=== PATIENT | male | born 1995 | race Native Hawaiian/Other Pacific Islander ===

== ENCOUNTER 2018-10-28 18:05 | Emergency (ER) | payer BC, OTHER ==
[~2018-10-28] VITALS: Ht 177.8 cm; Wt 81.6 kg
[2018-10-28] MEDS ORDERED: LACTATED RINGERS 1,000 ML IV ONE ×3 (18:14→20:14)
[2018-10-28 18:26] LABS: BASOPHILS % (AUTO) 0 % (0-10); EOSINOPHILS # (AUTO) 0.2 10^3/uL (0.0-0.3); EOSINOPHILS % (AUTO) 2 % (0-10); HEMATOCRIT 46 % (40-54); HEMOGLOBIN 15.9 G/DL (13.3-17.7); LYMPHOCYTES # (AUTO) 3.1 X 10^3 (1.0-4.0); LYMPHOCYTES % (AUTO) 27 % (12-44); MEAN CORPUSCULAR HEMOGLOBIN 31 PG (25-34); MEAN CORPUSCULAR HGB CONC 35 G/DL (32-36); MEAN CORPUSCULAR VOLUME 90 FL (80-99); MEAN PLATELET VOLUME 9.3 FL (7.4-10.4); MONOCYTES # (AUTO) 0.9 X 10^3 (0.0-1.0); MONOCYTES % (AUTO) 8 % (0-12); NEUTROPHILS % (AUTO) 63 % (42-75); PLATELET COUNT 281 10^3/uL (130-400); RED CELL DISTRIBUTION WIDTH 12.7 % (10.0-14.5); WHITE BLOOD COUNT 11.1 10^3/uL (4.3-11.0)
[2018-10-28 18:27] LABS: BILIRUBIN,URINE NEGATIVE (NEGATIVE); CLARITY,URINE SLIGHTLY CLOUDY; COLOR,URINE YELLOW; GLUCOSE, URINE (UA) NEGATIVE (NEGATIVE); KETONES,URINE 2+ (NEGATIVE); LEUKOCYTE ESTERASE ,URINE NEGATIVE (NEGATIVE); NITRITE,URINE NEGATIVE (NEGATIVE); PH,URINE 5 (5-9); PROTEIN,URINE 3+ (NEGATIVE); UROBILINOGEN,URINE NORMAL (NORMAL)
[2018-10-28 18:33] LABS: BACTERIA,URINE TRACE /HPF; RBC,URINE RARE /HPF; SQUAMOUS EPITHELIAL CELL,UR RARE /HPF
[2018-10-28 18:36] LABS: INR 1.1 (0.8-1.4); PROTHROMBIN TIME PATIENT 14.6 SEC (12.2-14.7)
[2018-10-28 18:37] LABS: AMPHETAMINE SCREEN, URINE NEGATIVE (NEGATIVE); BARBITURATE SCREEN URINE NEGATIVE (NEGATIVE); BENZODIAZEPINES SCREEN URINE NEGATIVE (NEGATIVE); CANNABINOID SCREEN, URINE NEGATIVE (NEGATIVE); COCAINE SCREEN URINE NEGATIVE (NEGATIVE); METHADONE STAT NEGATIVE (NEGATIVE); METHAMPHETAMINE SCREEN URINE S NEGATIVE (NEGATIVE); OPIATE SCREEN URINE NEGATIVE (NEGATIVE); OXYCODONE STAT NEGATIVE (NEGATIVE); PROPOXYPHENE STAT NEGATIVE (NEGATIVE); TRICYCLIC ANTIDEPRESSANTS SCRE NEGATIVE (NEGATIVE)
[2018-10-28 18:45] LABS: ACETAMINOPHEN < 10 UG/ML (10-30); ALANINE AMINOTRANSFERASE 67 U/L (0-55); ALBUMIN 5.3 GM/DL (3.2-4.5); ALKALINE PHOSPHATASE 94 U/L (40-136); BILIRUBIN,TOTAL 0.2 MG/DL (0.1-1.0); BUN/CREATININE RATIO 10; CALCIUM 10.5 MG/DL (8.5-10.1); CARBON DIOXIDE 13 MMOL/L (21-32); CHLORIDE 104 MMOL/L (98-107); CREATINE KINASE 1321 U/L (30-200); CREATININE SERUM 1.45 MG/DL (0.60-1.30); GFR ESTIMATED > 60; GLUCOSE 130 MG/DL (70-105); MAGNESIUM 2.6 MG/DL (1.8-2.4); POTASSIUM 3.2 MMOL/L (3.6-5.0); SODIUM 143 MMOL/L (135-145); TOTAL PROTEIN 8.3 GM/DL (6.4-8.2)
--- NOTE | 2018-10-28 18:50 | Diagnostic Imaging Report ---
INDICATION: Seizure. TECHNIQUE: Noncontrast brain CT is performed. FINDINGS: There were no extra-axial fluid collections. No intracranial hemorrhage. No intracranial mass or mass effect. No midline shift. The ventricles are normal in size and position. There were no focal parenchymal abnormalities in the brain. Calvarial windows were unremarkable. IMPRESSION: Negative noncontrast brain CT. Dictated by: Dictated on workstation # [id number]
[2018-10-28 19:04] LABS: CREATINE KINASE MB 3.7 NG/ML (<6.6); TSH (THYROID ANALYZER) 1.92 UIU/ML (0.35-4.94)
--- NOTE | 2018-10-28 19:14 | ED Neurological Problem ---
General Chief Complaint: Neurological Problems Stated Complaint: SEIZURE Nursing Triage Note: PT BROUGHT IN BY EMS FROM THE STUDENT [facility]. PER EMS PT WAS RUNNING ON THE TREADMILL, GOT OFF THE TREADMILL, WENT TO HIS KNEES, AND STARTED SEIZING. BYSTANDERS STATED THEY LAID PT TO FLOOR, DID NOT HIT HIS HEAD. PT WAS COMBATIVE AT SCENE. PT WAS GIVEN 400MG IM KETAMINE BY EMS. Nursing Sepsis Screen: No Definite Risk Source: EMS Exam Limitations: clinical condition (PT SEDATED ON ARRIVAL) History of Present Illness Date Seen by Provider: Oct 28, 2018 Time Seen by Provider: 18:05 Initial Comments PT ARRIVES VIA EMS FROM U STUDENT [facility] PER EMS, PT WAS ON TREADMILL, GOT OFF THE TREADMILL AND DROPPED TO HIS KNEES, AND THEN STARTED HAVING A SEIZURE IS UNKNOWN HOW LONG THE SEIZURE LASTED BYSTANDERS LAID PT ON THE FLOOR ON HIS SIDE. NO REPORTED INJURY ANYWHERE EMS REPORT THAT PT WAS TALKING AND CONFUSED AND COMBATIVE WHEN THEY ARRIVED AT SCENE, SO THEY GAVE 400 MG KETAMINE IM ( AT LEAST 5 INJECTION SITES TO LEFT DELTOID AREA) PT IS INCONTINENT OF URINE NO OTHER INFORMATION IS OBTAINABLE AT THIS TIME, PT IS SEDATED FROM KETAMINE P[facility] STUDENT PCP IS IN [facility]UR[facility] LOCALLY Allergies and Home Medications Allergies Coded Allergies: No Allergy Information Available (Unverified , 10/28/18) Patient Home Medication List Home Medication List Reviewed: Yes Review of Systems Review of Systems Constitutional: other (UNABLE TO OBTAIN) Past Zkcabzj-Tqkrqr-Rvpyne Hx Patient Social History Alcohol Use: Occasionally Uses Recreational Drug Use: No Smoking Status: Never a Smoker Recent Foreign Travel: No Contact w/Someone Who Travel: No Recent Infectious Disease Expo: No Recent Hopitalizations: No Immunizations Up To Date Tetanus Booster (TDap): Unknown Past Medical History Surgeries: Yes Respiratory: Yes Asthma Cardiac: No Neurological: Yes Seizure Disorder Genitourinary: No Gastrointestinal: No Musculoskeletal: No Endocrine: No HEENT: No Cancer: No Psychosocial: No Integumentary: No Blood Disorders: No Physical Exam Vital Signs Vital Signs - First Documented 10/28/18 18:05 Temp 99.3 Pulse 111 Resp 22 B/P (MAP) 155/84 (107) Pulse Ox 97 O2 Delivery Room Air O2 Flow Rate 2.00 Capillary Refill : Less Than 3 Seconds Height, Weight, BMI Height: 5'10.00" Weight: 180lbs. oz. 81.574271dp; BMI Method:Estimated General Appearance: WD/WN, other (SEDATE, RESPIRATIONS EVEN AND UNLABORED. ) HEENT: other (+ HORIZONTAL NYSTAGMUS. NO EVIDENCE OF ORAL INJURY) Neck: normal inspection Respiratory: normal breath sounds, no respiratory distress, no accessory muscle use Cardiovascular: regular rate, rhythm, no murmur Gastrointestinal: soft Back: normal inspection Extremities: normal inspection, normal capillary refill Neurologic/Psychiatric: other (PT SEDATED ON ARRIVAL) Skin: normal color, warm/dry Progress/Results/Core Measures Results/Orders Lab Results Laboratory Tests Test 10/28/18 18:10 10/28/18 18:18 10/28/18 18:21 Range/Units White Blood Count 11.1 H 4.3-11.0 10^3/uL Red Blood Count 5.09 4.35-5.85 10^6/uL Hemoglobin 15.9 13.3-17.7 G/DL Hematocrit 46 40-54 % Mean Corpuscular Volume 90 80-99 FL Mean Corpuscular Hemoglobin 31 25-34 PG Mean Corpuscular Hemoglobin Concent 35 32-36 G/DL Red Cell Distribution Width 12.7 10.0-14.5 % Platelet Count 281 130-400 10^3/uL Mean Platelet Volume 9.3 7.4-10.4 FL Neutrophils (%) (Auto) 63 42-75 % Lymphocytes (%) (Auto) 27 12-44 % Monocytes (%) (Auto) 8 0-12 % Eosinophils (%) (Auto) 2 0-10 % Basophils (%) (Auto) 0 0-10 % Neutrophils # (Auto) 7.0 1.8-7.8 X 10^3 Lymphocytes # (Auto) 3.1 1.0-4.0 X 10^3 Monocytes # (Auto) 0.9 0.0-1.0 X 10^3 Eosinophils # (Auto) 0.2 0.0-0.3 10^3/uL Basophils # (Auto) 0.0 0.0-0.1 10^3/uL Prothrombin Time 14.6 12.2-14.7 SEC INR Comment 1.1 0.8-1.4 Activated Partial Thromboplast Time 31 24-35 SEC Sodium Level 143 135-145 MMOL/L Potassium Level 3.2 L 3.6-5.0 MMOL/L Chloride Level 104 98-107 MMOL/L Carbon Dioxide Level 13 L 21-32 MMOL/L Anion Gap 26 H 5-14 MMOL/L Blood Urea Nitrogen 14 7-18 MG/DL Creatinine 1.45 H 0.60-1.30 MG/DL Estimat Glomerular Filtration Rate > 60 BUN/Creatinine Ratio 10 Glucose Level 130 H 70-105 MG/DL Calcium Level 10.5 H 8.5-10.1 MG/DL Corrected Calcium 8.5-10.1 MG/DL Magnesium Level 2.6 H 1.8-2.4 MG/DL Total Bilirubin 0.2 0.1-1.0 MG/DL Aspartate Amino Transf (AST/SGOT) 75 H 5-34 U/L Alanine Aminotransferase (ALT/SGPT) 67 H 0-55 U/L Alkaline Phosphatase 94 40-136 U/L Total Creatine Kinase 1321 H 30-200 U/L Creatine Kinase MB 3.7 <6.6 NG/ML Troponin I < 0.028 <0.028 NG/ML Total Protein 8.3 H 6.4-8.2 GM/DL Albumin 5.3 H 3.2-4.5 GM/DL TSH [place] Testing 1.92 0.35-4.94 UIU/ML Acetaminophen Level < 10 L 10-30 UG/ML Serum Alcohol < 10 <10 MG/DL Urine Color YELLOW Urine Clarity SLIGHTLY CLOUDY Urine pH 5 5-9 Urine Specific [place] 1.025 H 1.016-1.022 Urine Protein 3+ H NEGATIVE Urine Glucose (UA) NEGATIVE NEGATIVE Urine Ketones 2+ H NEGATIVE Urine Nitrite NEGATIVE NEGATIVE Urine Bilirubin NEGATIVE NEGATIVE Urine Urobilinogen NORMAL NORMAL MG/DL Urine Leukocyte Esterase NEGATIVE NEGATIVE Urine RBC (Auto) 3+ H NEGATIVE Urine RBC RARE /HPF Urine WBC NONE /HPF Urine Squamous Epithelial Cells RARE /HPF Urine Crystals NONE /LPF Urine Bacteria TRACE /HPF Urine Casts PRESENT /LPF Urine Hyaline Casts 2-5 H /LPF Urine Mucus NEGATIVE /LPF Urine Culture Indicated NO Urine Opiates Screen NEGATIVE NEGATIVE Urine Oxycodone Screen NEGATIVE NEGATIVE Urine Methadone Screen NEGATIVE NEGATIVE Urine Propoxyphene Screen NEGATIVE NEGATIVE Urine Barbiturates Screen NEGATIVE NEGATIVE Ur Tricyclic Antidepressants Screen NEGATIVE NEGATIVE Urine Phencyclidine Screen NEGATIVE NEGATIVE Urine Amphetamines Screen NEGATIVE NEGATIVE Urine Methamphetamines Screen NEGATIVE NEGATIVE Urine Benzodiazepines Screen NEGATIVE NEGATIVE Urine Cocaine Screen NEGATIVE NEGATIVE Urine Cannabinoids Screen NEGATIVE NEGATIVE Glucometer 112 H 70-110 MG/DL My Orders Orders - KEYA REYNOLDS DO Chest 1 View, Ap/Pa Only (10/28/18 18:14) Acetaminophen (10/28/18 18:14) Alcohol (10/28/18 18:14) Cbc With Automated Diff (10/28/18 18:14) Comprehensive Metabolic Panel (10/28/18 18:14) Creatine Kinase (10/28/18 18:14) Creatine Kinase Mb (10/28/18 18:14) Drug Screen Stat (Urine) (10/28/18 18:14) Magnesium (10/28/18 18:14) Protime With Inr (10/28/18 18:14) Partial Thromboplastin Time (10/28/18 18:14) Thyroid Analyzer (10/28/18 18:14) Troponin I (10/28/18 18:14) Ua Culture If Indicated (10/28/18 18:14) Saline Lock/Iv-Start (10/28/18 18:14) Lactated Ringers (Lr 1000 Ml Iv Solution (10/28/18 18:14) Accucheck Stat ONCE (10/28/18 18:14) Saline Lock/Iv-Start (10/28/18 18:14) Ekg Tracing (10/28/18 18:14) O2 (10/28/18 18:14) Monitor-Rhythm Ecg Trace Only (10/28/18 18:14) Straight Cath For Spec.-Adult (10/28/18 18:14) Ct Head Wo (10/28/18 18:14) Saline Lock/Iv-Start (10/28/18 19:04) Lactated Ringers (Lr 1000 Ml Iv Solution (10/28/18 19:04) Levetiracetam Injection (Keppra Injectio (10/28/18 19:15) Scopolamine Patch (Transderm-Scop Patch) (10/28/18 19:15) Ondansetron Injection (Zofran Injectio (10/28/18 19:45) Saline Lock/Iv-Start (10/28/18 20:14) Lactated Ringers (Lr 1000 Ml Iv Solution (10/28/18 20:14) Medications Given in ED Current Medications Medications Dose Ordered Sig/Marti Route Start Time Stop Time Status Last Admin Dose Admin Lactated Ringer's 1,000 ml @ 0 mls/hr Q0M ONCE IV 10/28/18 18:14 10/28/18 18:17 DC 10/28/18 18:25 1,000 MLS/HR Lactated Ringer's 1,000 ml @ 0 mls/hr Q0M ONCE IV 10/28/18 19:04 10/28/18 19:09 DC 10/28/18 19:41 1,000 MLS/HR Ondansetron HCl 8 mg ONCE ONCE IVP 10/28/18 19:45 10/28/18 19:46 DC 10/28/18 19:54 8 MG Scopolamine 1.5 mg ONCE ONCE TD 10/28/18 19:15 10/28/18 19:16 DC 10/28/18 19:35 1.5 MG Vital Signs/I&O 10/28/18 10/28/18 18:05 18:05 Temp 99.3 Pulse 111 Resp 22 B/P (MAP) 155/84 (107) Pulse Ox 97 97 O2 Delivery Room Air Nasal Cannula O2 Flow Rate 2.00 Blood Pressure Mean: 107 FSBG Bedside Testing Finger Stick Blood Glucose: 112 Blood Glucose Action Taken: DR REYNOLDS NOTIFIED Progress Progress Note : Progress Note PT ROUSES BRIEFLY TO VERBAL AND TACTILE STIMULI 1909--PT IS MORE AWAKE, CONFUSED TO PLACE, TIME, SITUATION. PT DOES STATE THAT HE HAS SEIZURES AND TAKES KEPPRA AND OXCARBAZEPINE. HE IS UNABLE TO STATE IF HE HAS MISSED ANY DOSES. PT C/O SEVERE DIZZINESS AND PT STILL WITH NYSTAGMUS 1928--ABLE TO CONTACT PT'S MOM ON PT'S PHONE ( SHE LIVES IN [place], AND WILL NOT BE COMING TO ER ) SHE REPORTS THAT HE HAS HISTORY OF SEIZURES AND CONFIRMS THE ABOVE MEDICATIONS, AND THAT HE HAS HISTORY OF ASTHMA, OTHERWISE NO OTHER MEDICAL PROBLEMS. 2009--PT NOW AWAKE, ALERT, ORIENTED X 4, TALKING NORMALLY. RECALLS EVENTS JUST PRIOR TO SEIZURE. HE STATES HE TOOK AM MEDICATIONS, BUT STARTED EXERCISING BEFORE HE TOOK HIS PM DOSE OF MEDICATIONS, DENIES ANY OTHER MISSED DOSES OF MEDICATIONS. STATES HIS LAST SEIZURE WAS 6 MONTHS AGO. STATES IT IS NORMAL FOR HIM TO BE DIZZY AFTER SEIZURE, AND HE DECLINES ANY OTHER MEDICATIONS FOR DIZZINESS--STATES IT WILL PASS. HAD NAUSEA EARLIER AND ZOFRAN GIVEN AND STATES NAUSEA IS BETTER NOW. PT''S ROOM MATE AND ANOTHER MALE FRIEND ARE HERE NOW, AND BRING PT'S MEDICATIONS 2104--PT CONTINUES TO IMPROVE, DIZZINESS IS IMPROVING. NYSTAGMUS HAS RESOLVED. PT TOLERATING WATER AND ICE CHIPS PT DOES STATE HE HAS BEEN TAKING SUPPLEMENTS FOR WORKING OUT, IN ADDITION TO MONSTER ENERGY DRINKS PT ABLE TO AMBULATE ON HIS OWN WITHOUT DIFFICULTY PRIOR TO DISMISSAL. FEELS COMFORTABLE GOING HOME. Initial ECG Impression Date: Oct 28, 2018 Initial ECG Impression Time: 18:08 Initial ECG Rate: 108 Initial ECG Rhythm: S.Tach Initial ECG Comparisson: No Previous ECG Available Diagnostic Imaging Comments CT HEAD--NO ACUTE PROCESS, PER RADIOLOGIST REPORT AT 1851 CXR-- Reviewed: Reviewed by Me Departure Impression Primary Impression: SEIZURE IN PT WITH KNOWN SEIZURE DISORDER Additional Impression: Dehydration Disposition: 01 HOME, SELF-CARE Condition: Improved Departure-Patient Inst. Referrals: NO,LOCAL PHYSICIAN (PCP/Family) Primary Care Physician Patient Instructions: Seizures, Adult (DC), Dehydration, Adult (DC) Add. Discharge Instructions: LOTS OF CLEAR LIQUIDS--WATER, BROTH, JELLO, GATORADE--DRINK ENOUGH SO YOU ARE URINATING EVERY 2 HOURS WHILE AWAKE NO DRIVING FOR A MINIMUM OF 6 MONTHS--YOU HAVE TO BE CLEARED BY YOUR DR BEFORE YOU CAN DRIVE TYLENOL NEEDED FOR PAIN LEAVE SCOPOLAMINE PATCH IN PLACE FOR 3 DAYS NO SUPPLEMENTS OR ENERGY DRINKS FOLLOW UP WITH YOUR NEUROLOGIST IN 1-2 DAYS RETURN TO ER IF WORSE All discharge instructions reviewed with patient and/or family. Voiced understanding. KEYA REYNOLDS DO Oct 28, 2018 19:14
[2018-10-28] MEDS ORDERED: LEVETIRACETAM INJECTION 1,000 MG in NS (IVPB) 100 ML IV SCH (19:15)
[2018-10-28] MEDS ORDERED: SCOPOLAMINE 1.5 MG (TRANSDERM-SCOP) PATCH TD ONE (19:15)
--- NOTE | 2018-10-28 19:16 | Diagnostic Imaging Report ---
INDICATION: Seizure Portable chest obtained at 6:49 p.m. Heart and mediastinal silhouette are normal in appearance. The lungs appear clear. There is no pneumothorax or pleural fluid. IMPRESSION: Negative chest. Dictated by: Dictated on workstation # [id number]
[2018-10-28] MEDS ORDERED: ONDANSETRON 4 MG/2 ML (SDV) Z0FRAN IVP ONE (19:45)
[2018-10-28 21:30] VITALS: BP 116/66
== END 2018-10-28 21:42 | disposition home or self-care (01) ==
LOC: ER 18:05 → EDBD 18:05 → ER 21:42
DX: R56.9 Unspecified convulsions (principal); E86.0 Dehydration; J45.909 Unspecified asthma, uncomplicated; G40.909 Epilepsy, unspecified, not intractable, without status epilepticus
CPT/HCPCS: 36415; 51701; 70450; 71045; 80053; 80306; 80320; 80329; 81000; 82550; 82553; 82962; 83735; 84443; 84484; 85025; 85610; 85730; 93005; 93041; 96361; 96374; 96375